=== PATIENT | male | born 1970 | race Hispanic/Latino ===

== ENCOUNTER → 2019-02-10 | Outpatient (CLI) | payer BC ==
--- NOTE | 2019-02-10 09:51 | Diagnostic Imaging Report ---
EXAM: US GALLBLADDER DATE: 02/10/2019 8:00 AM Time stamp on exam: INDICATION: Gallstones COMPARISON: None TECHNIQUE: Transverse and longitudinal adams scale and color doppler sonographic images of the upper abdomen were obtained. FINDINGS: LIVER 13.4 cm in the right midclavicular line. Increased echogenicity, normal contour, no masses. GALLBLADDER Shadowing calculus within the dependent portion. Subcentimeter echogenic foci along the gallbladder wall, measuring up to 5 mm. No wall thickening or pericholecystic fluid. Negative sonographic Sen's sign. BILE DUCTS No intra nor extra-hepatic biliary dilation. Common bile duct measures 0.3 cm PANCREAS: Visualized portions are normal. RIGHT KIDNEY: 11.7 cm Echogenicity: Normal Collecting System: No hydronephrosis Stones: None Cyst/Mass: None VESSELS: Aorta: Nonaneurysmal Inferior Vena Cava: Patent Main Portal Vein: 1 cm, normal size with hepatopetal flow. FREE FLUID: None IMPRESSION: Cholelithiasis without sonographic evidence of acute cholecystitis. Additional echogenic foci within the gallbladder may represent tumefactive sludge or small polyps. A follow-up right upper quadrant ultrasound in 6-12 months is suggested if interval cholecystectomy is not planned. Increased hepatic parenchymal echogenicity compatible with steatosis. Signed by: Dr. Miguel Leone M.D. on 02/10/2019 9:48 AM
== END ==
LOC: US 07:50
PROVIDERS: ATTEND Surgery
DX: K80.20 Calculus of gallbladder without cholecystitis without obstruction (principal); K76.0 Fatty (change of) liver, not elsewhere classified
CPT/HCPCS: 76705